=== PATIENT | female | born 1995 | race Caucasian/White ===

== ENCOUNTER 2018-03-07 02:02 | Inpatient (IN) | payer MEDICAID ==
[~2018-03-07] VITALS: Ht 160 cm; Wt 79.8 kg
[2018-03-07] VITALS (9 sets, daily range): BP systolic 98–121; BP diastolic 55–67
[2018-03-07] MEDS ORDERED: LACTATED RINGERS 1,000 ML IV SCH (02:35)
[2018-03-07 03:01] LABS: BASOPHILS % 0.3 % (0.0-2.0); EOSINOPHILS % 0.7 % (0.0-5.0); HEMATOCRIT. 35.8 % (36.0-48.0); HEMOGLOBIN. 12.1 g/dL (12.0-16.0); LYMPHOCYTES % 21.9 % (20.0-50.0); MEAN CORPUSCULAR HEMOGLOBIN 29.4 pg (28.0-32.0); MEAN CORPUSCULAR VOLUME 86.7 fL (81.0-99.0); MEAN PLATELET VOLUME 8.6 fl (7.4-10.4); MONOCYTES % 7.7 % (2.0-8.0); NEUTROPHILS % 69.4 % (40.0-76.0); PLATELET 285 x1000/uL (130-400); RED BLOOD CELL COUNT 4.13 mill/uL (4.2-5.4); RED CELL DISTRIBUTION WIDTH 13.6 % (11.6-14.6)
[2018-03-07 03:12] LABS: CLARITY URINE CLEAR (CLEAR); COLOR URINE YELLOW (YELLOW); KETONES URINE NEGATIVE (NEGATIVE); LEUKOCYTE ESTERASE URINE NEGATIVE (NEGATIVE); NITRITE URINE NEGATIVE (NEGATIVE); OCCULT BLOOD URINE 1+ (NEGATIVE); PROTEIN URINE NEGATIVE (NEGATIVE); SPECIFIC GRAVITY URINE 1.004 (1.005-1.030); UROBILINOGEN URINE 0.2 E.U./dL (0.2-1.0)
[2018-03-07 03:22] LABS: *AMPHETAMINES SCREEN URINE NEGATIVE (NEGATIVE); *BARBITURATES SCREEN URINE NEGATIVE (NEGATIVE); *BENZODIAZEPINES SCREEN URINE NEGATIVE (NEGATIVE); *COCAINE SCREEN URINE NEGATIVE (NEGATIVE)
[2018-03-07 03:23] LABS: CANNABINOID URINE SCREEN NEGATIVE (NEGATIVE); METHADONE URINE SCREEN NEGATIVE (NEGATIVE); OPIATES URINE SCREEN NEGATIVE (NEGATIVE); PHENCYCLIDINE URINE SCREEN NEGATIVE (NEGATIVE)
[2018-03-07] MEDS: BUTORPHANOL TARTRATE 2 MG/ML VIAL IV PRN ×2 (03:24→03:29)
[2018-03-07] MEDS ORDERED: DEXT 5%/LR + PITOCIN 20UNITS/L 1,000 ML IV SCH (04:10)
[2018-03-07] MEDS ORDERED: CARBOPROST TROMETHAMINE 250 MCG/ML AMPUL IM PRN (04:15)
[2018-03-07] MEDS ORDERED: NALOXONE HCL 0.4 MG/ML 1ML VIAL IM PRN (04:15)
[2018-03-07] MEDS ORDERED: METHYLERGONOVINE MALEATE 0.2 MG/ML IM PRN (04:15)
[2018-03-07] MEDS ORDERED: MORPHINE SULFATE/PF 1MG/ML 10ML AMP ONE (04:17)
[2018-03-07] MEDS ORDERED: ONDANSETRON HCL 4MG/2ML INJ ONE (04:20)
[2018-03-07 04:51] LABS: PARTIAL THROMBOPLASTIN TIME 24.1 sec (23.4-31.0)
[2018-03-07] MEDS ORDERED: OXYTOCIN 10 UNITS/ML 1ML ONE (05:00)
[2018-03-07] MEDS ORDERED: CEFAZOLIN 2000MG PREMIX 50 ML IV ONE (05:14)
[2018-03-07] MEDS ORDERED: KETOROLAC 60MG/2ML VIAL IM ONE (05:19)
[2018-03-07] MEDS ORDERED: BUPIVACAINE HCL/DEXTROSE/PF 0.75% 2ML AMP INJ ONE (05:19)
[2018-03-07] MEDS ORDERED: DEXAMETHASONE 4MG/ML 1ML VIAL ONE (05:20)
[2018-03-07] MEDS ORDERED: EPHEDRINE SULFATE 50MG/ML VIAL ONE (05:40)
[2018-03-07] MEDS ORDERED: BISACODYL 10MG SUPP PR PRN (06:00)
[2018-03-07] MEDS ORDERED: RHO(D) IMMUNE GLOBULIN 300 MCG/SYR IM PRN (06:00)
[2018-03-07] MEDS ORDERED: HYDROMORPHONE HCL/PF 2MG/ML CPJ IM PRN (06:00)
[2018-03-07] MEDS ORDERED: ONDANSETRON HCL 4MG/2ML INJ IV PRN (06:00)
[2018-03-07] MEDS ORDERED: HYDROCODONE/ACETAMINOPHEN 5/325MG TABLET PO PRN (06:00)
[2018-03-07] MEDS: DEXT 5%/LR + PITOCIN 20UNITS/L 1,000 ML IV SCH ×2 (07:11→12:56)
[2018-03-07] MEDS ORDERED: PNV1TABL50 MT (07:24)
[2018-03-07] MEDS: PRENATAL VIT/FE FUMARATE/FA TABLET PO SCH ×3 (09:00→15:16)
[2018-03-07 11:23] LABS: HEPATITIS B SURFACE ANTIGEN NEGATIVE
[2018-03-07 12:07] LABS: RUBELLA IGG > 500.0 IU/mL (4.99-10)
[2018-03-07] MEDS: SIMETHICONE 80MG TABLET CHEW PO SCH ×3 (12:46→21:31)
[2018-03-07] MEDS ORDERED: DIPHENHYDRAMINE 25MG CAPSULE PO PRN (21:00)
[2018-03-07] MEDS: DOCUSATE SODIUM 100MG CAPSULE PO SCH (21:29)
[2018-03-08] VITALS: BP 101/61
[2018-03-08 05:30] VITALS: BP 104/59
[2018-03-08 08:00] VITALS: BP 100/57
[2018-03-08 08:24] LABS: BASOPHILS % 0.1 % (0.0-2.0); EOSINOPHILS % 0.2 % (0.0-5.0); HEMATOCRIT. 31.2 % (36.0-48.0); HEMOGLOBIN. 10.6 g/dL (12.0-16.0); LYMPHOCYTES % 13.5 % (20.0-50.0); MEAN CORPUSCULAR HEMOGLOBIN 29.8 pg (28.0-32.0); MEAN PLATELET VOLUME 9.1 fl (7.4-10.4); MONOCYTES % 8.4 % (2.0-8.0); NEUTROPHILS % 77.8 % (40.0-76.0); PLATELET 248 x1000/uL (130-400); RED BLOOD CELL COUNT 3.54 mill/uL (4.2-5.4); RED CELL DISTRIBUTION WIDTH 13.3 % (11.6-14.6)
[2018-03-08] MEDS: PRENATAL VIT/FE FUMARATE/FA TABLET PO SCH (08:24)
[2018-03-08] MEDS: SIMETHICONE 80MG TABLET CHEW PO SCH ×4 (09:00→21:09)
[2018-03-08 12:08] VITALS: BP 108/66
[2018-03-08 13:25] LABS: BASOPHILS % 0.1 % (0.0-2.0); EOSINOPHILS % 0.3 % (0.0-5.0); HEMATOCRIT. 31.3 % (36.0-48.0); HEMOGLOBIN. 10.5 g/dL (12.0-16.0); LYMPHOCYTES % 13.1 % (20.0-50.0); MEAN CORPUSCULAR HEMOGLOBIN 29.3 pg (28.0-32.0); MEAN CORPUSCULAR VOLUME 87.5 fL (81.0-99.0); MEAN PLATELET VOLUME 8.5 fl (7.4-10.4); MONOCYTES % 7.8 % (2.0-8.0); NEUTROPHILS % 78.7 % (40.0-76.0); PLATELET 255 x1000/uL (130-400); RED BLOOD CELL COUNT 3.58 mill/uL (4.2-5.4); RED CELL DISTRIBUTION WIDTH 13.5 % (11.6-14.6)
[2018-03-08] MEDS: HYDROCODONE/ACETAMINOPHEN 5/325MG TABLET PO PRN (15:30)
[2018-03-08 16:00] VITALS: BP 105/64
[2018-03-08 20:00] VITALS: BP 124/66
[2018-03-08] MEDS: DOCUSATE SODIUM 100MG CAPSULE PO SCH (21:09)
[2018-03-08] MEDS: IBUPROFEN 400MG TABLET PO PRN (21:36)
[2018-03-09] VITALS: BP 118/65
[2018-03-09 04:00] VITALS: BP 106/64
[2018-03-09] MEDS: IBUPROFEN 400MG TABLET PO PRN ×3 (06:27→21:33)
[2018-03-09 07:53] VITALS: BP 105/50
[2018-03-09] MEDS: SIMETHICONE 80MG TABLET CHEW PO SCH ×5 (08:21→21:32)
[2018-03-09] MEDS: PRENATAL VIT/FE FUMARATE/FA TABLET PO SCH (08:21)
[2018-03-09] MEDS: HYDROCODONE/ACETAMINOPHEN 5/325MG TABLET PO PRN (16:08)
[2018-03-09 16:24] VITALS: BP 118/76
[2018-03-09 19:10] VITALS: BP 99/62
[2018-03-09] MEDS: DOCUSATE SODIUM 100MG CAPSULE PO SCH ×2 (21:00→21:31)
[2018-03-09 23:45] VITALS: BP 102/69
[2018-03-10 08:00] VITALS: BP 104/67
[2018-03-10] MEDS: PRENATAL VIT/FE FUMARATE/FA TABLET PO SCH (11:13)
[2018-03-10] MEDS: IBUPROFEN 400MG TABLET PO PRN (11:13)
== END 2018-03-11 12:15 | disposition home or self-care (01) | DRG 540 ==
LOC: OBSVTOIN 02:02 → L&D 02:02 → 7EST PP/OB 09:16
PROVIDERS: ADMIT Specialist; ATTEND Specialist
PROC: 10D00Z1 Extraction of Products of Conception, Low, Open Approach (ICD-10-PCS; principal; 2018-03-07 09:00)
DX: O32.8XX0 Maternal care for other malpresentation of fetus, not applicable or unspecified (principal); O60.12X0 Preterm labor second trimester with preterm delivery second trimester, not applicable or unspecified; D64.9 Anemia, unspecified; Z37.0 Single live birth; Z3A.25 25 weeks gestation of pregnancy; O67.8 Other intrapartum hemorrhage; Z90.49 Acquired absence of other specified parts of digestive tract; O90.81 Anemia of the puerperium
CPT/HCPCS: 36415; 76805; 80305; 81003; 85025; 85610; 85730; 86592; 86703; 86762; 86850; 86900; 86920; 87340; 88307; 93970; 99281; J0595; J0690; J1100; J1885; J2274; J2405; J2590; J3490; J7120; A4315